=== PATIENT | male | born 1950 | race Caucasian/White ===

== ENCOUNTER → 2018-07-06 | Outpatient (CLI) | payer MEDICARE ==
[~2018-07-06] MED LIST: AMLO5TAB7 PO; LISI-167 PO; LORA0.5T PO; METH20TA PO
== END | disposition home or self-care (01) ==
LOC: RAD 14:55
PROVIDERS: ATTEND Urology
DX: N20.2 Calculus of kidney with calculus of ureter (principal); N13.30 Unspecified hydronephrosis
CPT/HCPCS: 74018

== ENCOUNTER 2018-07-07 05:53 | Day surgery (SDC) | payer MEDICARE ==
[~2018-07-07] VITALS: Ht 172.7 cm; Wt 89.0 kg
[2018-07-07] MEDS ORDERED: LACTATED RINGERS 1,000 ML IV SCH (06:28)
[2018-07-07] MEDS ORDERED: LISI-167 PO (06:43)
[2018-07-07] MEDS ORDERED: LORA0.5T PO (06:43)
[2018-07-07] MEDS ORDERED: AMLO5TAB7 PO (06:43)
[2018-07-07] MEDS ORDERED: METH20TA PO (06:43)
[2018-07-07 06:50] VITALS: BP 134/85
[2018-07-07] MEDS ORDERED: FENTANYL PF 100 MCG/2ML ONE (06:54)
[2018-07-07 06:57] LABS: MICROSCOPIC AUTO
[2018-07-07 07:06] LABS: CULTURE INDICATED? YES
[2018-07-07] MEDS ORDERED: OXYcodone 5 MG/5 ML ORAL.SOL UDC PO PRN (07:30)
[2018-07-07] MEDS ORDERED: HALOPERIDOL 5 MG/ML IV PRN (07:30)
[2018-07-07] MEDS ORDERED: FENTANYL PF 100 MCG/2ML IV PRN (07:30)
[2018-07-07] MEDS ORDERED: MEPERIDINE/PF 25MG/0.5ML IVPush PRN (07:30)
[2018-07-07] MEDS ORDERED: HYDROmorphone 1 MG/ML, 1ML IV PRN (07:30)
[2018-07-07] MEDS ORDERED: PROCHLORPERAZINE 5 MG/ML, 2ML IV PRN (07:30)
[2018-07-07] MEDS ORDERED: DIPHENHYDRAMINE 50 MG/ML, 1ML IVPush PRN (07:30)
[2018-07-07] MEDS ORDERED: PROPOFOL 10 MG/ML, 20ML ONE (07:41)
[2018-07-07] MEDS ORDERED: KETOROLAC 30 MG/1 ML ONE (07:41)
[2018-07-07] MEDS ORDERED: EPHEDRINE 50 MG/ML, 1ML ONE (07:41)
[2018-07-07] MEDS ORDERED: ONDANSETRON 2MG/ML, 2ML ONE (07:41)
[2018-07-07] MEDS ORDERED: DEXAMETHASONE 4 MG/ML, 1ML ONE (07:41)
[2018-07-07] MEDS ORDERED: PHENYLEPHRINE 10 MG/ML ONE (07:41)
[2018-07-07 07:47] LABS: ALBUMIN 3.8 g/dL (3.4-5.0); ANION GAP 8 mmol/L (5-15); CALCIUM 9.3 mg/dL (8.5-10.1); CHLORIDE 110 mmol/L (98-107)
[2018-07-07 07:50] LABS: ALANINE AMINOTRANSFERASE 27 U/L (12-78); ALKALINE PHOSPHATASE 70 U/L (45-117); BILIRUBIN,TOTAL 0.6 mg/dL (0.2-1.0); CREATININE 1.41 mg/dL (0.7-1.3); TOTAL PROTEIN 7.6 g/dL (6.4-8.2)
[2018-07-07] MEDS ORDERED: CIPROFLOXACIN/PMX 400MG/200ML 200 ML ONE (07:58)
== END 2018-07-07 12:55 | disposition home or self-care (01) ==
LOC: OUT 05:53
PROVIDERS: ATTEND Urology
DX: N20.2 Calculus of kidney with calculus of ureter (principal); J45.909 Unspecified asthma, uncomplicated; I10 Essential (primary) hypertension; Z88.1 Allergy status to other antibiotic agents; Z88.7 Allergy status to serum and vaccine; Z88.8 Allergy status to other drugs, medicaments and biological substances; Z85.46 Personal history of malignant neoplasm of prostate
CPT/HCPCS: 36415; 50590; 80053; 81001; 87086; 93005; J0744; J1100; J1885; J2370; J2405; J2704; J3010; J7120